=== PATIENT | male | born 1980 | race Caucasian/White ===

== ENCOUNTER 2020-05-21 01:13 | Outpatient (CLI) | payer OTHER, SELFPAY ==
[2020-05-21 18:36] LABS: SARS-CoV-2 RNA PCR Negative
== END 2020-05-21 01:14 | disposition home or self-care (01) ==
LOC: ANHCOVIDDT 01:14
PROVIDERS: Visit Provider Internal Medicine Gastroenterology
DX: Z01.812 Encounter for preprocedural laboratory examination (principal); Z20.828 Contact with and (suspected) exposure to other viral communicable diseases
CPT/HCPCS: 87635; C9803; U0003

== ENCOUNTER 2020-05-22 02:19 | Day surgery (SDC) | payer OTHER, SELFPAY ==
[2020-05-14 14:56] VITALS: BMI 37.0
[2020-05-22 12:43] VITALS: BP 131/78; PULSE 75; RESP 20; TEMP 36.3; O2SAT 98
[2020-05-22 12:54] LABS: Glucose Point of Care 117 (65-105)
[2020-05-22] MEDS: LACTATED RINGERS 1,000 ML 150 ML IV CONT (12:54)
--- NOTE | 2020-05-22 13:53 | PM.IMHP ---
H&P: [facility] History of Present Illness Date/Time: 05/22/20 13:53 Chief complaint: Vomiting,nausea Narrative: Reason for visit EGD. This very pleasant gentleman is here for evaluation request the primary physician. Impression: There very pleasant gentleman with abdominal pain. He has significant abdominal bloating, nausea and vomiting. Underlying peptic ulcer disease should be excluded. There may be a component of the common and gastroparesis. Patient does have chronic constipation. Underlying inflammatory or neoplastic disease should be excluded. He does complain of anal seepage. Anxiety/depression. Diabetes mellitus. Diabetic neuropathy. HTN. HLD. CAD status post stent placement x1. COPD. NAFLD. Factor 5 deficiency. CVA. Recommendation: EGD. Colonoscopy scheduled. History: Very pleasant gentleman is being referred for abdominal pain, nausea, vomiting and bloating. He is here for endoscopic evaluation/plan peptic ulcer disease. He denies significant indigestion heartburn. NSAID use is denied. He does have history of chronic constipation. He also complains of anal seepage. He has had a previous EGD and colonoscopy several years ago. He is here for EGD and colonoscopy has been scheduled. Patient has lost approximately 20 lb. Physical examination: General: very pleasant patient in no acute distress. HEENT: Head was normocephalic sclerae is clear mouth without masses neck was supple. Heart: Rate rhythm regular without S3 or S4. Lungs: CTA. Abdomen: Soft with no guarding or rigidity. Bowel sounds were active. Neurologic: Cranial nerves 2 through 12 intact. No focal defects. No clonus. Musculoskeletal system: Revealed no joint tenderness or swelling no muscle atrophy. Extremities: Reveal no significant edema. Skin: Warm and dry with normal turgor. Mental status: intact. Patient is alert and oriented. Review of Systems Review of Systems: All systems reviewed & are unremarkable except as noted in HPI and below [facility] Past Medical History Medical History (Updated 05/22/20 @ 13:53 by Gilbert Arteaga DO) Anxiety and depression CAD (coronary artery disease) Stent x 1 COPD (chronic obstructive pulmonary disease) CVA (cerebral vascular accident) Diabetes mellitus Factor 5 Leiden mutation, heterozygous HLD (hyperlipidemia) HTN (hypertension) NAFLD (nonalcoholic fatty liver disease) PTSD (post-traumatic stress disorder) Meds Home Medications and Allergies Home Medications Medication Instructions Recorded Confirmed Type aspirin 325 mg PO DAILY 05/14/20 05/22/20 History atorvastatin 40 mg PO DAILY 05/14/20 05/22/20 History bupropion HCl 300 mg PO DAILY 05/14/20 05/22/20 History carvedilol 25 mg PO DAILY 05/14/20 05/22/20 History clopidogrel 75 mg PO DAILY 05/14/20 05/22/20 History cyclobenzaprine 10 mg PO DAILY PRN 05/14/20 05/22/20 History empagliflozin [Jardiance] 10 mg PO DAILY 05/14/20 05/22/20 History insulin glargine [Lantus Solostar 35 unit SUBCUT BID 05/14/20 05/22/20 History U-100 Insulin] insulin lispro [Humalog KwikPen 20 unit SUBCUT TID 05/14/20 05/14/20 History Insulin] losartan 50 mg PO DAILY 05/14/20 05/22/20 History ondansetron 4 mg PO Q8-10H PRN 05/14/20 05/22/20 History pantoprazole 40 mg PO DAILY 05/14/20 05/22/20 History prochlorperazine maleate 10 mg PO Q6-12H PRN 05/14/20 05/22/20 History promethazine 25 mg PO Q6-8H PRN 05/14/20 05/22/20 History sitagliptin [Januvia] 100 mg PO DAILY 05/14/20 05/22/20 History sucralfate 1 g PO QID 05/14/20 05/22/20 History topiramate 100 mg PO BID 05/14/20 05/22/20 History trazodone 200 mg PO DAILY 05/14/20 05/22/20 History umeclidinium [Incruse Ellipta] 1 inh INHALATION DAILY 05/14/20 05/22/20 History zolpidem 10 mg PO HS 05/14/20 05/22/20 History Allergies Allergy/AdvReac Type Severity Reaction Status Date / Time divalproex sodium Allergy Intermediate Other Verified 05/22/20 12:38 [From Depa
--- NOTE | 2020-05-22 13:58 | WPDANESEPPF ---
Anes - Initial Pre Proc Eval Procedure: Operation Date: 05/22/20 13:00 Proposed Procedures p Esophagogastroduodenoscopy - Gilbert Arteaga DO Date/Time: 05/22/20 13:58 Surgeon: Gilbert Arteaga DO Pre Op Diagnosis: Vomiting,nausea Patient Data Age: 39 Gender: M Height: 6 ft 1 in Weight: 131.2 kg Last Vital Signs Temp 36.3 C L 05/22/20 12:43 Pulse 75 05/22/20 12:43 Resp 20 05/22/20 12:43 BP 131/78 05/22/20 12:43 Pulse Ox 98 05/22/20 12:43 Allergies Allergy/AdvReac Type Severity Reaction Status Date / Time divalproex sodium Allergy Intermediate Other Verified 05/22/20 12:38 [From Depakote] fluticasone [From Flonase] Allergy Mild Nose Bleed Verified 05/22/20 12:38 lisinopril Allergy Mild Vomiting Verified 05/22/20 12:38 Home Medications Medication Instructions Recorded Confirmed Type aspirin 325 mg PO DAILY 05/14/20 05/22/20 History atorvastatin 40 mg PO DAILY 05/14/20 05/22/20 History bupropion HCl 300 mg PO DAILY 05/14/20 05/22/20 History carvedilol 25 mg PO DAILY 05/14/20 05/22/20 History clopidogrel 75 mg PO DAILY 05/14/20 05/22/20 History cyclobenzaprine 10 mg PO DAILY PRN 05/14/20 05/22/20 History empagliflozin [Jardiance] 10 mg PO DAILY 05/14/20 05/22/20 History insulin glargine [Lantus Solostar 35 unit SUBCUT BID 05/14/20 05/22/20 History U-100 Insulin] insulin lispro [Humalog KwikPen 20 unit SUBCUT TID 05/14/20 05/14/20 History Insulin] losartan 50 mg PO DAILY 05/14/20 05/22/20 History ondansetron 4 mg PO Q8-10H PRN 05/14/20 05/22/20 History pantoprazole 40 mg PO DAILY 05/14/20 05/22/20 History prochlorperazine maleate 10 mg PO Q6-12H PRN 05/14/20 05/22/20 History promethazine 25 mg PO Q6-8H PRN 05/14/20 05/22/20 History sitagliptin [Januvia] 100 mg PO DAILY 05/14/20 05/22/20 History sucralfate 1 g PO QID 05/14/20 05/22/20 History topiramate 100 mg PO BID 05/14/20 05/22/20 History trazodone 200 mg PO DAILY 05/14/20 05/22/20 History umeclidinium [Incruse Ellipta] 1 inh INHALATION DAILY 05/14/20 05/22/20 History zolpidem 10 mg PO HS 05/14/20 05/22/20 History Laboratory Tests 05/22/20 12:49 POC Capillary Glucose 117 mg/dl H mg/dl (65-105) Patient hx anesthesia problems: none Family hx anesthesia problems: none [facility] Past Medical History Medical History Anxiety and depression CAD (coronary artery disease) Stent x 1 COPD (chronic obstructive pulmonary disease) CVA (cerebral vascular accident) Diabetes mellitus Factor 5 Leiden mutation, heterozygous HLD (hyperlipidemia) HTN (hypertension) NAFLD (nonalcoholic fatty liver disease) PTSD (post-traumatic stress disorder) Surgical History Surgical History (Updated 05/22/20 @ 13:59 by Ger Barnes MD) Status post lumbar surgery Anes - Eval Final PreProcedure Day of Procedure 05/22/20 13:58 Patient weight: obese Heart: regular rate and rhythm Lungs: clear to auscultation Airway: Mallampati scale class II Neurological: alert and oriented Last oral intake: >/= 8 hours ASA classification: III Emergent: no Anesthetic plan: proceed Anesthesia type and monitoring: general GIVS and standard monitoring Informed Consent: The patient's anesthetic plan and its attendant risks and benefits were discussed with the patient/family/POA. Questions were solicited and answers provided to the satisfaction of the patient/family/POA.
[2020-05-22] MEDS: BENZOCAINE (*SP) 60 ML SPRAY CAN (HURRICAINE) 1 SPRAY MUCOUS MEM (14:24)
[2020-05-22 14:38] VITALS: BP 119/82; PULSE 83; RESP 14; O2SAT 98
[2020-05-22 14:48] VITALS: BP 120/80; PULSE 74; RESP 16; O2SAT 99
[2020-05-22 14:58] VITALS: BP 127/82; PULSE 69; RESP 16; O2SAT 99
== END 2020-05-22 15:47 | disposition home or self-care (01) ==
PROVIDERS: Visit Provider Internal Medicine Gastroenterology
PROC: 0DJ08ZZ Inspection of Upper Intestinal Tract, Via Natural or Artificial Opening Endoscopic (ICD-10-PCS; CPT 43235; principal; 2020-05-22 13:00)
DX: K29.80 Duodenitis without bleeding (principal); K44.9 Diaphragmatic hernia without obstruction or gangrene; E11.40 Type 2 diabetes mellitus with diabetic neuropathy, unspecified; I10 Essential (primary) hypertension; E78.5 Hyperlipidemia, unspecified; J44.9 Chronic obstructive pulmonary disease, unspecified; I25.10 Atherosclerotic heart disease of native coronary artery without angina pectoris; K76.0 Fatty (change of) liver, not elsewhere classified; D68.51 Activated protein C resistance; F41.8 Other specified anxiety disorders; Z95.5 Presence of coronary angioplasty implant and graft; Z86.73 Personal history of transient ischemic attack (TIA), and cerebral infarction without residual deficits; F43.10 Post-traumatic stress disorder, unspecified; Z79.82 Long term (current) use of aspirin; Z79.02 Long term (current) use of antithrombotics/antiplatelets; Z79.4 Long term (current) use of insulin; E66.9 Obesity, unspecified; Z68.38 Body mass index [BMI] 38.0-38.9, adult
CPT/HCPCS: 43239; 87081; 88305; J2704; J7120

== ENCOUNTER 2020-05-31 01:21 | Outpatient (CLI) | payer OTHER, SELFPAY ==
[2020-05-31 19:18] LABS: SARS-CoV-2 RNA PCR Negative
== END 2020-05-31 01:22 | disposition home or self-care (01) ==
LOC: ANHCOVIDDT 01:21
PROVIDERS: Visit Provider Internal Medicine Gastroenterology
DX: Z01.812 Encounter for preprocedural laboratory examination (principal); Z20.828 Contact with and (suspected) exposure to other viral communicable diseases
CPT/HCPCS: 87635; C9803; U0003

== ENCOUNTER 2020-06-03 01:08 | Day surgery (SDC) | payer OTHER, SELFPAY ==
[2020-05-23 14:30] VITALS: BMI 38.1
[2020-06-03 10:17] VITALS: BP 98/57; PULSE 71; RESP 18; TEMP 36.8; O2SAT 98
--- NOTE | 2020-06-03 10:25 | WPDANESEPPF ---
Anes - Initial Pre Proc Eval Procedure: Operation Date: 06/03/20 11:30 Proposed Procedures p Colonoscopy - Gilbert Arteaga DO Date/Time: 06/03/20 10:25 Surgeon: Gilbert Arteaga DO Pre Op Diagnosis: Left Sided Abdominal pain Patient Data Age: 39 Gender: M Height: 6 ft 1 in Weight: 128.9 kg Last Vital Signs Temp 98.2 F 06/03/20 10:17 Pulse 71 06/03/20 10:17 Resp 18 06/03/20 10:17 BP 98/57 L 06/03/20 10:17 Pulse Ox 98 06/03/20 10:17 Allergies Allergy/AdvReac Type Severity Reaction Status Date / Time divalproex sodium Allergy Intermediate Other Verified 06/03/20 10:15 [From Depakote] fluticasone [From Flonase] Allergy Mild Nose Bleed Verified 06/03/20 10:15 lisinopril Allergy Mild Vomiting Verified 06/03/20 10:15 Home Medications Medication Instructions Recorded Confirmed Type aspirin 325 mg PO DAILY 05/14/20 06/03/20 History atorvastatin 40 mg PO DAILY 05/14/20 06/03/20 History bupropion HCl 300 mg PO DAILY 05/14/20 06/03/20 History carvedilol 25 mg PO DAILY 05/14/20 06/03/20 History clopidogrel 75 mg PO DAILY 05/14/20 06/03/20 History cyclobenzaprine 10 mg PO DAILY PRN 05/14/20 06/03/20 History empagliflozin [Jardiance] 10 mg PO DAILY 05/14/20 06/03/20 History insulin glargine [Lantus Solostar 35 unit SUBCUT BID 05/14/20 05/23/20 History U-100 Insulin] insulin lispro [Humalog KwikPen 20 unit SUBCUT TID 05/14/20 05/23/20 History Insulin] losartan 50 mg PO DAILY 05/14/20 06/03/20 History ondansetron 4 mg PO Q8-10H PRN 05/14/20 05/23/20 History pantoprazole 40 mg PO DAILY 05/14/20 05/23/20 History prochlorperazine maleate 10 mg PO Q6-12H PRN 05/14/20 05/23/20 History promethazine 25 mg PO Q6-8H PRN 05/14/20 06/03/20 History sitagliptin [Januvia] 100 mg PO DAILY 05/14/20 05/23/20 History sucralfate 1 g PO QID 05/14/20 06/03/20 History topiramate 100 mg PO BID 05/14/20 05/23/20 History trazodone 200 mg PO DAILY 05/14/20 05/23/20 History umeclidinium [Incruse Ellipta] 1 inh INHALATION DAILY 05/14/20 05/23/20 History zolpidem 10 mg PO HS 05/14/20 05/23/20 History Patient hx anesthesia problems: none Family hx anesthesia problems: none [facility] Past Medical History Medical History Anxiety and depression CAD (coronary artery disease) Stent x 1 COPD (chronic obstructive pulmonary disease) CVA (cerebral vascular accident) Diabetes mellitus Factor 5 Leiden mutation, heterozygous HLD (hyperlipidemia) HTN (hypertension) NAFLD (nonalcoholic fatty liver disease) PTSD (post-traumatic stress disorder) Surgical History Surgical History (Updated 05/22/20 @ 13:59 by Ger Barnes MD) Status post lumbar surgery Anes - Eval Final PreProcedure Day of Procedure 06/03/20 10:25 Patient weight: obese Heart: regular rate and rhythm Lungs: clear to auscultation Airway: Mallampati scale class III Neurological: alert and oriented Last oral intake: >/= 8 hours ASA classification: III Emergent: no Anesthetic plan: proceed Anesthesia type and monitoring: general GIVS and standard monitoring Informed Consent: The patient's anesthetic plan and its attendant risks and benefits were discussed with the patient/family/POA. Questions were solicited and answers provided to the satisfaction of the patient/family/POA.
[2020-06-03] MEDS: LACTATED RINGERS 1,000 ML 150 ML IV CONT (10:35)
[2020-06-03 10:44] LABS: Glucose Point of Care 137 (65-105)
--- NOTE | 2020-06-03 11:12 | SUR.PREOP ---
1100: PT NOTIFIED DR LEE WILL BE ARRIVING AN HOUR LATE. NO CONCERNS. PT GIVEN HIS PHONE BACK DURING HIS WAIT TIME.
--- NOTE | 2020-06-03 12:25 | WPDHPUPDATE1 ---
History and Physical Update Update Date/Time: 06/03/20 12:25 History and Physical has been reviewed, including an updated exam of the patient. There are NO changes in the patient's condition. Risks, benefits, and alternatives have been discussed and questions answered. Patient agrees to proceed with procedure.
[2020-06-03 12:52] VITALS: BP 111/80; PULSE 71; RESP 20; O2SAT 94
[2020-06-03 13:02] VITALS: BP 121/81; PULSE 60; RESP 22; O2SAT 97
[2020-06-03 13:12] VITALS: BP 134/83; PULSE 74; RESP 18; O2SAT 99
== END 2020-06-03 13:30 | disposition home or self-care (01) ==
PROVIDERS: Visit Provider Internal Medicine Gastroenterology
PROC: 0DJD8ZZ Inspection of Lower Intestinal Tract, Via Natural or Artificial Opening Endoscopic (ICD-10-PCS; CPT 45378; principal; 2020-06-03 11:30)
DX: K52.9 Noninfective gastroenteritis and colitis, unspecified (principal); D12.2 Benign neoplasm of ascending colon; D12.4 Benign neoplasm of descending colon; D12.6 Benign neoplasm of colon, unspecified; D12.8 Benign neoplasm of rectum; I10 Essential (primary) hypertension; E11.9 Type 2 diabetes mellitus without complications; Z79.4 Long term (current) use of insulin; E78.5 Hyperlipidemia, unspecified; J44.9 Chronic obstructive pulmonary disease, unspecified; I25.10 Atherosclerotic heart disease of native coronary artery without angina pectoris; Z95.5 Presence of coronary angioplasty implant and graft; D68.51 Activated protein C resistance; F41.8 Other specified anxiety disorders; Z79.82 Long term (current) use of aspirin; Z79.02 Long term (current) use of antithrombotics/antiplatelets; Z79.899 Other long term (current) drug therapy; Z86.73 Personal history of transient ischemic attack (TIA), and cerebral infarction without residual deficits
CPT/HCPCS: 45380; 45385; 88305; J2704; J7120

== ENCOUNTER 2022-12-17 19:07 | Emergency (ER) | payer MEDICARE, MEDICAID, SELFPAY ==
[2022-12-17 19:24] VITALS: BP 129/81; PULSE 70; RESP 19; TEMP 36.3; O2SAT 99
--- NOTE | 2022-12-17 19:42 | PC.NURSE ---
Pt states abscess started 1-2 months ago, drained and has now come back, has history of folliculitis.
--- NOTE | 2022-12-17 19:56 | ED.MALEGU ---
HPI - Male Genitourinary General Chief complaint: Skin/Abscess/Foreign Body Stated complaint: Urinary Problem Time Seen by Provider: 12/17/22 19:54 Source: patient and RN notes reviewed Mode of arrival: ambulatory Limitations: no limitations History of Present Illness HPI Narrative: 42-year-old male with history of urinary tract infections presents with concern for urine frequency, dysuria. He also reports a boil on his right thigh that is tender. Reports it has gotten smaller but is still slightly tender. He denies fever, aches, chills. MD Complaint: dysuria Related Data Home Medications Medication Instructions Recorded Confirmed aspirin 81 mg tablet,delayed 325 mg PO DAILY 05/14/20 12/17/22 release atorvastatin 40 mg tablet 40 mg PO DAILY 05/14/20 12/17/22 bupropion HCl 300 mg 24 hr tablet, 300 mg PO DAILY 05/14/20 12/17/22 extended release carvedilol 25 mg tablet 25 mg PO DAILY 05/14/20 12/17/22 clopidogrel 75 mg tablet 75 mg PO DAILY 05/14/20 12/17/22 cyclobenzaprine 10 mg tablet 10 mg PO DAILY PRN Cramps 05/14/20 12/17/22 empagliflozin 10 mg tablet 10 mg PO DAILY 05/14/20 12/17/22 (Jardiance) insulin glargine 100 unit/mL (3 35 unit subcut BID 05/14/20 12/17/22 mL) subcutaneous pen (Lantus Solostar U-100 Insulin) insulin lispro 100 unit/mL 20 unit subcut TID 05/14/20 12/17/22 subcutaneous pen (Humalog KwikPen (U-100) Insulin) losartan 50 mg tablet 50 mg PO DAILY 05/14/20 12/17/22 ondansetron 4 mg disintegrating 4 mg PO Q8-10H PRN Nausea 05/14/20 12/17/22 tablet pantoprazole 40 mg tablet,delayed 40 mg PO DAILY 05/14/20 12/17/22 release prochlorperazine maleate 5 mg 10 mg PO Q6-12H PRN Nausea 05/14/20 12/17/22 tablet promethazine 25 mg tablet 25 mg PO Q6-8H PRN Nausea 05/14/20 12/17/22 sitagliptin phosphate 100 mg 100 mg PO DAILY 05/14/20 12/17/22 tablet (Januvia) sucralfate 1 gram tablet 1 g PO QID 05/14/20 12/17/22 topiramate 100 mg tablet 100 mg PO BID 05/14/20 12/17/22 trazodone 100 mg tablet 200 mg PO DAILY 05/14/20 12/17/22 umeclidinium 62.5 mcg/actuation 1 inh inhalation DAILY 05/14/20 12/17/22 blister powder for inhalation (Incruse Ellipta) zolpidem 10 mg tablet 10 mg PO HS 05/14/20 12/17/22 Allergies Allergy/AdvReac Type Severity Reaction Status Date / Time divalproex sodium Allergy Intermediate Other Verified 12/17/22 19:37 [From Depakote] fluticasone [From Flonase] Allergy Mild Nose Bleed Verified 12/17/22 19:37 lisinopril Allergy Mild Vomiting Verified 12/17/22 19:37 Review of Systems Review of Systems: CONSTITUTIONAL: Denies malaise, chills, sweats, or fever. CARDIOVASCULAR: Denies chest pain, palpitations, or edema. RESPIRATORY: Denies cough or dyspnea. GASTROINTESTINAL: Denies abdominal pain, nausea, vomiting, diarrhea GENITOURINARY: Reports dysuria, frequency, urgency. Denies suprapubic pressure. Denies flank pain or hematuria. SKIN: Reports a boil on his right thigh MUSCULOSKELETAL: Denies back pain or myalgia. All systems reviewed & are unremarkable except as noted in HPI and below PMF[facility] Past Medical History Medical History (Updated 12/17/22 @ 20:03 by Alva Clifford NP) Anxiety and depression CAD (coronary artery disease) Stent x 1 COPD (chronic obstructive pulmonary disease) CVA (cerebral vascular accident) Diabetes mellitus Factor 5 Leiden mutation, heterozygous HLD (hyperlipidemia) HTN (hypertension) NAFLD (nonalcoholic fatty liver disease) PTSD (post-traumatic stress disorder) Surgical History Surgical History (Updated 05/22/20 @ 13:59 by Ger Barnes MD) Status post lumbar surgery Comments At time of signature, agree with nursing past medical, surgical, social and family history. There is no relevant family history pertinent to the presenting complaint Exam Narrative: GENERAL: Well-appearing, well-nourished, and in no acute distress. HEAD: Normocephalic. EYES: PERRLA, conjunctivae clear. NECK: Supple. No lymphadeno
== END 2022-12-17 20:10 | disposition home or self-care (01) ==
PROVIDERS: Emergency Provider Nurse Practitioner
DX: N39.0 Urinary tract infection, site not specified (principal); L02.224 Furuncle of groin; E78.5 Hyperlipidemia, unspecified; I10 Essential (primary) hypertension; E11.9 Type 2 diabetes mellitus without complications; I25.10 Atherosclerotic heart disease of native coronary artery without angina pectoris; J44.9 Chronic obstructive pulmonary disease, unspecified; F41.9 Anxiety disorder, unspecified; F32.A Depression, unspecified; Z79.82 Long term (current) use of aspirin; Z79.4 Long term (current) use of insulin
CPT/HCPCS: 81003; 87077; 87086; 87186; 99213; G0463